=== PATIENT | female | born 1970 | race Caucasian/White ===

== ENCOUNTER 2024-09-06 01:04 | Day surgery (SDC) | payer OTHER, SELFPAY ==
[2024-09-02 08:38] VITALS: BMI 20.7
[2024-09-06 07:49] VITALS: BP 123/91; PULSE 109; RESP 18; TEMP 36.6; O2SAT 100
[2024-09-06] MEDS: LACTATED RINGERS 1,000 ML 150 ML IV CONT (08:08)
--- NOTE | 2024-09-06 08:38 | P.PNAN_ITS ---
Anes - Initial Pre Proc Eval Procedure: Operation Date: 09/06/24 09:00 Proposed Procedures p Screening Colonoscopy - Shakir Gonsalves DO Date/Time: 09/06/24 08:38 Surgeon: Shakir Gonsalves DO Pre Op Diagnosis: Neoplasm screening Patient Data Age: 54 Gender: F Height: 1.52 m Weight: 45.7 kg Last Vital Signs Temp 36.6 C 09/06/24 07:49 Pulse 109 H 09/06/24 07:49 Resp 18 09/06/24 07:49 BP 123/91 H 09/06/24 07:49 Pulse Ox 100 09/06/24 07:49 O2 Del Method Room Air 09/06/24 07:49 Allergies Allergy/AdvReac Type Severity Reaction Status Date / Time No Known Allergies Allergy Verified 09/06/24 07:48 Home Medications ?Medication ?Instructions ?Recorded ?Confirmed ?Type cefuroxime axetil 500 mg tablet 500 mg PO Q12H 10 days #20 tabs 08/30/24 09/02/24 Rx Patient hx anesthesia problems: none Family hx anesthesia problems: none Results Review: All pre-operative results and documents have been reviewed as part of the pre- operative evaluation. [facility] Past Medical History Medical History Anxiety Surgical History Surgical History History of hysterectomy Family History Family History Father Family history of diabetes mellitus in first degree relative Social History Social History Smoking status: Current every day smoker Tobacco type: cigarettes Alcohol intake: current Drinks per week: 3 Substance use: current Substance use type: marijuana Last use: every few weeks Do You Feel Safe in your Home?: Yes Lack of Transportation: No Lack of Food: Never True Current Housing: I Have Housing Concerned About Future Housing: No Difficulty Paying Gas/Electric Bills: No Difficulty Paying for Meds: No Currently Unemployed: No Difficulty w/ Childcare or Family Care: No Living arrangements: with family Spiritual care concerns: No Anes - Eval Final PreProcedure Day of Procedure 09/06/24 08:38 Patient weight: normal Heart: regular rate and rhythm Lungs: decreased breath sounds Airway: Mallampati scale class II Neurological: alert and oriented Last oral intake: >/= 8 hours ASA classification: III Emergent: no Anesthetic plan: proceed Anesthesia type and monitoring: general GIVS and standard monitoring Results Review: All pre-operative results and documents have been reviewed as part of the pre- operative evaluation. Informed Consent: The patient's anesthetic plan and its attendant risks and benefits were discusse d with the patient/family/POA. Questions were solicited and answers provided to the satisfaction of the patient/family/POA.
--- NOTE | 2024-09-06 08:57 | PM.IMHP ---
H&P: HPI History of Present Illness Date/Time: 09/06/24 08:57 Chief Complaint: screening for colorectal cancer Narrative: this is a 54-year-old woman who presents for her 1st colonoscopy. She denies any hematochezia or melena. She denies a family history colon cancer. Review of Systems Review of Systems: All systems reviewed & are unremarkable except as noted in HPI and below Constitutional: Constitutional: Denies chills, Denies fever(s), Denies headache(s) and Denies weight loss Eyes: Eyes: Denies change in vision ENT: Denies dizziness, Denies headache(s), Denies neck mass and Denies throat swelling Cardiovascular: Cardiovascular: Denies chest pain, Denies lightheadedness and Denies dyspnea Respiratory: Respiratory: Denies cough, Denies dyspnea and Denies wheezing Gastrointestinal: Gastrointestinal: Denies abdominal pain, Denies change in bowel habits, Denies nausea and Denies vomiting Genitourinary: Genitourinary: Denies hematuria and Denies dysuria Musculoskeletal: Musculoskeletal: Reports as per HPI Integumentary/Breasts: Skin/Breast: Reports as per HPI Neurologic: Denies dizziness and Denies headache(s) Allergic/Immunologic: Allergic/Immunologic: Denies throat swelling and Denies wheezing PMFSH Past Medical History Medical History Anxiety Surgical History Surgical History History of hysterectomy Family History Family History Father Family history of diabetes mellitus in first degree relative Social History Social History Smoking status: Current every day smoker Tobacco type: cigarettes Alcohol intake: current Drinks per week: 3 Substance use: current Substance use type: marijuana Last use: every few weeks Do You Feel Safe in your Home?: Yes Lack of Transportation: No Lack of Food: Never True Current Housing: I Have Housing Concerned About Future Housing: No Difficulty Paying Gas/Electric Bills: No Difficulty Paying for Meds: No Currently Unemployed: No Difficulty w/ Childcare or Family Care: No Living arrangements: with family Spiritual care concerns: No Meds Home Medications and Allergies Home Medications ?Medication ?Instructions ?Recorded ?Confirmed ?Type cefuroxime axetil 500 mg tablet 500 mg PO Q12H 10 days #20 tabs 08/30/24 09/02/24 Rx Allergies Allergy/AdvReac Type Severity Reaction Status Date / Time No Known Allergies Allergy Verified 09/06/24 07:48 Vital Signs Vital Signs - 24 hr 09/06/24 07:49 Temperature 98 F Pulse Rate 109 H Respiratory Rate 18 Blood Pressure 123/91 H Pulse Oximetry 100 Oxygen Delivery Room Air Exam Const: General: no acute distress and alert Orientation/consciousness: patient oriented x3 HENMT: Head: normocephalic and atraumatic Ears: hearing grossly normal bilaterally Face/Nose/Sinus: Normal nares present Mouth: Yes Normal oral and palatal mucosa present Eyes: Periorbital: periorbital findings normal Sclera: sclerae normal EOM: EOMs intact bilaterally Neck: Neck: normal visual inspection, no lymphadenopathy and trachea midline Chest: Chest palpation & inspection: normal inspection of the chest Resp: Effort & Inspection: normal respiratory effort Auscultation: clear to auscultation bilaterally Cardio: Jugular venous distension: no JVD Rate: regular rate Rhythm: regular rhythm Heart sounds: S1 normal heart sound present and S2 normal heart sound present Peripheral pulses: Peripheral pulses 2+ throughout GI: Inspection: normal to inspection GI Palp: Yes Soft to palpation, No Tenderness to palpation present (GI), No Guarding due to palpation present (GI) and No Rebound tenderness present Percussion: Yes normal to percussion Auscultation: normal bowel sounds : General: Yes no CVA tenderness Back/Spine/Pelvis: Back: no CVA tenderness Neuro: General: patient oriented x3, no focal motor deficits and CN's II-XI intact bilaterally Cognition (Neuro): normal cognition Speech: normal speech Motor exam (neuro): 5/5 motor strength present throughout Extrem: General: capillary refill normal and no clubbing, cyanosis or edema Assessment and Plan Assessment and plan (1) Screening for colorectal cancer: Code(s): Z12.11 - Encounter for screening for malignant neoplasm of colon; Z12.12 - Encounter for screening for malignant neoplasm of rectum Status: Acute Assessment and Plan: I have recommended colonoscopy. I have discussed the procedure, risks, benefits, and alternatives. Questions were answered. Patient is agreeable to proceed.
--- NOTE | 2024-09-06 09:26 | S_PTH ---
PATIENT: Caryn Appiah LOC: [facility] U#:[id number] AGE/SX: 54/F ROOM: RE09/06/[address]: Shakir Gonsalves DO : 1970 BED: DIS: 09/06/2024 SPEC #: [id number] RECD: 09/06/24 10:52 STATUS: MALLORY REQ #: [id number] SIMI: 09/06/24 09:[address]: Shakir Gonsalves DEPT: [facility] [place] Surgical RECD BY: Carolina Stephen ENTERED: 09/06/24 10:53 SP TYPE: Surgical OTHR DR: Nishant Elder MD Tissues: A - Colon Polypectomy B - Colon Polypectomy C - Colon Polypectomy Procedures: Hematoxylin and Eosin Stain Gross and Microscopic Level 4
[2024-09-06 09:31] VITALS: BP 111/78; PULSE 95; RESP 20; O2SAT 100
[2024-09-06 09:41] VITALS: BP 114/68; PULSE 85; RESP 18; O2SAT 100
[2024-09-06 09:51] VITALS: BP 110/68; PULSE 86; RESP 18; O2SAT 100
== END 2024-09-06 10:02 | disposition home or self-care (01) ==
PROVIDERS: PCP Family Medicine; Visit Provider Surgery
PROC: 0DJD8ZZ Inspection of Lower Intestinal Tract, Via Natural or Artificial Opening Endoscopic (ICD-10-PCS; CPT 45378; principal; 2024-09-06 09:00)
DX: Z12.11 Encounter for screening for malignant neoplasm of colon (principal); D12.3 Benign neoplasm of transverse colon; D12.5 Benign neoplasm of sigmoid colon; K57.30 Diverticulosis of large intestine without perforation or abscess without bleeding; F17.210 Nicotine dependence, cigarettes, uncomplicated; F12.90 Cannabis use, unspecified, uncomplicated
CPT/HCPCS: 45385; 88305; J2003; J2704; J7120

== ENCOUNTER 2024-10-04 12:41 | Outpatient (CLI) | payer OTHER, SELFPAY ==
--- NOTE | ~2024-10-04 | XR_ITS ---
Clinical Indication: Cough PA and lateral views of the chest: Comparison: None Findings: The lungs are clear, without evidence of focal consolidation or pleural effusion. Cardiome diastinal silhouette is within normal limits. Bones and soft tissues are unremarkable. Impression: Normal chest. Reviewed, dictated and finalized at location . Impression: Normal chest.
== END 2024-10-04 12:42 | disposition home or self-care (01) ==
LOC: MICIMG 12:43
PROVIDERS: PCP Family Medicine; Visit Provider Family Medicine
DX: R05.2 Subacute cough (principal)
CPT/HCPCS: 71046